=== PATIENT | female | born 1975 | race Caucasian/White ===

== ENCOUNTER 2017-02-17 17:37 | Emergency (ER) | payer SELFPAY ==
[~2017-02-17] VITALS: Ht 162.6 cm; Wt 77.0 kg
[2017-02-17] MEDS ORDERED: CYCLOBENZAPRINE 10MG TABLET PO ONE (18:45)
[2017-02-17] MEDS ORDERED: KETOROLAC 60MG/2ML VIAL IM ONE (18:45)
[2017-02-17 20:25] VITALS: BP 118/80
== END 2017-02-17 20:25 | disposition home or self-care (01) ==
LOC: ER 17:39
DX: M54.2 Cervicalgia (principal); M54.5 Low back pain; V49.88XA Car occupant (driver) (passenger) injured in other specified transport accidents, initial encounter; Y93.89 Activity, other specified; Y92.89 Other specified places as the place of occurrence of the external cause; Y99.8 Other external cause status
CPT/HCPCS: 96372; 99283; J1885